=== PATIENT | female | born 1960 | race Caucasian/White ===

== ENCOUNTER → 2017-12-15 | Outpatient (CLI) | payer MEDICARE, OTHER ==
--- NOTE | 2017-12-15 14:23 | RAD ---
Right upper quadrant abdominal ultrasound without comparison for abnormal labs, hepatitis C. TECHNIQUE AND FINDINGS: Real-time grayscale and color and spectral Doppler evaluation of the organs of the right upper quadrant is performed. The liver is normal in size, contour, and echogenicity, with no focal parenchymal abnormalities. The liver measures 15.5 cm. No intra or extrahepatic biliary ductal dilatation is identified. There is hepatopedal flow within the portal vein. The gallbladder is fluid distended and grossly unremarkable with no gallbladder wall thickening, pericholecystic fluid, stones, or sludge. No sonographic Olson sign was elicited. The pancreas is normal in appearance, though the tail was not clearly seen. The right kidney measures 10.0 x 5.3 x 4.7 cm and is free of any hydronephrosis or focal parenchymal abnormality. The IVC is patent. IMPRESSION: 1. No sonographically discernible abnormality of the right upper quadrant. Electronically signed by: Amrit Ribeiro MD (12/15/2017 2:20 PM) [id number]
== END | disposition home or self-care (01) ==
LOC: US 09:50
PROVIDERS: ATTEND Internal Medicine Gastroenterology
DX: R10.84 Generalized abdominal pain (principal)
CPT/HCPCS: 76705